=== PATIENT | male | born 1965 | race Caucasian/White ===

== ENCOUNTER 2018-06-14 14:59 | Day surgery (SDC) | payer BC, SELFPAY ==
--- NOTE | 2018-06-14 | PATH_ITS ---
[facility] Accession Number: [id number] . 01 Material submitted: . PART A: ileo-cecal valve - ILEOCECAL VALVE BIOPSY PART B: colon - COLON BIOPSY AT 10CM . 02 Diagnosis: A. Ileocecal Valve, Biopsy: Ileal mucosa with benign lymphoid hyperplasia. Negative for active inflammation, granulomata, dysplasia or malignancy. . B. Colon at 10 cm, Biopsy: Features of inflammatory polyp. Negative for active inflammation, granulomata, dysplasia or malignancy. [facility]/06/16/2018 . 02 Electronically signed: . Reji Borja MD, PhD, Pathologist NPI- [id number] . 01 Gross description: . Part A: ILEOCECAL VALVE BIOPSY: Received in formalin are multiple fragment(s) of carbajal, soft tissue measuring 1.0 x 0.5 x 0.3 cm in aggregate submitted entirely in 1 cassette(s) Part B: COLON BIOPSY AT 10CM: Received in formalin is 1 fragment(s) of carbajal, soft tissue measuring 0.4 x 0.4 x 0.4 cm submitted entirely in 1 cassette(s) /CKI /CKI . 02 Pathologist provided ICD-10: K51.40 . 02 CPT . 673636, [id number] Performed at: 01 [facility] [address], [place], [place] [id number] MD Dawit Moore MD Phone: [phone] Performed at: 02 [facility] [address] [place], [place] [id number] MD Vanna Roy MD Phone: [phone]
[2018-06-14 15:09] VITALS: BP 104/65; PULSE 57; RESP 15; TEMP 36.8; O2SAT 96; BMI 23.1
[2018-06-14] MEDS: SODIUM CHLORIDE 0.9% 1,000 ML 200 ML IV (15:23)
--- NOTE | 2018-06-14 16:36 | PM.HP.1 ---
History of Present Illness Date Patient Seen: 06/14/18 Time Patient Seen: 16:36 Chief complaint: [id number] Narrative: Patient is a gentleman is a 52 wound he is here for his 1st screening colonoscopy. No family history of colon cancer. Patient History Medical History (Updated 06/14/18 @ 16:37 by Ciro Ivory MD) Post cardiac operation functional disturbance (Acute) Surgical History (Updated 06/14/18 @ 16:37 by Ciro Ivory MD) History of appendectomy (Acute) History of inguinal hernia repair (Acute) Social History household members: none Family & Social History Social History: household members none Meds Home Medications Medication Instructions Recorded Confirmed Type No Known Home Medications 06/14/18 06/14/18 History Allergies Allergy/AdvReac Type Severity Reaction Status Date / Time No Known Drug Allergies Allergy Verified 06/14/18 15:23 Review of Systems Review of Systems All systems reviewed & are unremarkable except as noted in HPI and below Cardiovascular Comments: Heart murmur Exam Vital Signs (past 8 hours): - 06/14/18 15:09 Temperature 98.2 F Pulse Rate 57 L Respiratory Rate 15 Blood Pressure 104/65 Pulse Oximetry 96 Oxygen Delivery Method Room Air Narrative Exam Narrative: Pleasant cooperative patient no apparent distress. Lungs are clear to auscultation. No rales or rhonchi. Heart regular rate and rhythm. 3/6 harsh systolic murmur no gallop. Abdomen is soft nontender without mass. No obvious hernias. Patient is alert and oriented x3. Assessment & Plan Assessment & Plan narrative: The patient for a screening colonoscopy. I have discussed the procedure with them. Risks of bleeding, perforation which would necessitate major operation, failure to find remove all lesions, the potential tattoo were all discussed. All questions were answered. They wished to proceed.
[2018-06-14] MEDS: fentaNYL 250 MCG/5 ML INJ IV (18:03)
[2018-06-14] MEDS: MIDAZOLAM 5 MG/5 ML VIAL IV (18:03)
--- NOTE | 2018-06-14 18:14 | PM.OP.ENDO ---
Operative Date/Time/Diagnoses Date of procedure: 06/14/18 Time of procedure: 18:14 Pre-op diagnosis: Screening exam due to age. This is his 1st colonoscopy Post-op diagnosis: same (Colon polyp at 10 cm removed. prominent follicles on the ileocecal valve or biopsied) Procedure & Clinicians Study performed: Colonoscopy with cold biopsy Same procedure as scheduled: Yes Indications: Screening Surgeon: Ciro Ivory Procedure Notes SCOAP/Timeout: Performed Procedure in detail: The patient was placed in the left lateral decubitus position and underwent IV sedation directed by the surgeon consisting of fentanyl and Versed. Digital exam was unremarkable. Prostate is mildly enlarged.. The scope was inserted and advanced through the rectum into the sigmoid, descending, transverse, and ascending colon. Everything was normal in appearance.. The cecum was reached identified by the ileocecal valve and the appendiceal opening. The into the valve had very prominent lymphoid follicles. The ileocecal valve was successfully cannulated. The terminal ileum was normal in appearance except it also had the same prominent lymphoid follicles. I did biopsy a few these just to make sure there were nothing other than prominent follicles. The scope was gradually brought out. A Polyps were found at 10 cm from the anal verge. It was biopsied and completely removed. The scope ultimately was retroflexed in the rectum. The appearance was normal except for some minor scarring. The scope was removed and the patient tolerated the procedure well. The prep was excellent flow Scope withdrawal time: 8 minutes excluding biopsy rosetta Sedation minutes: 21 Findings: polyp (At 10 cm from the anal verge) and other findings (Prominent follicles on the ileocecal valve) Specimen(s): other (Biopsy of ileocecal valve and polyps) Complications: none Recommendations: Colonscopy in 5 years Follow up: as needed Disposition: PACU
[2018-06-14 18:21] VITALS: BP 96/69; PULSE 68; RESP 14; TEMP 36.7; O2SAT 96
[2018-06-14 18:23] VITALS: BP 94/61; PULSE 70; RESP 15; O2SAT 96
[2018-06-14 18:28] VITALS: BP 94/61; PULSE 66; RESP 13; TEMP 36.9; O2SAT 96
[2018-06-14 18:46] VITALS: BP 107/69; PULSE 68; RESP 16; TEMP 36.8; O2SAT 99
== END 2018-06-14 18:45 | disposition home or self-care (01) ==
PROVIDERS: Family Provider Family Medicine; PCP Family Medicine; Visit Provider Surgery
PROC: 0DJD8ZZ Inspection of Lower Intestinal Tract, Via Natural or Artificial Opening Endoscopic (ICD-10-PCS; CPT 45378; principal; 2018-06-14 16:00)
DX: Z12.11 Encounter for screening for malignant neoplasm of colon (principal); K51.40 Inflammatory polyps of colon without complications
CPT/HCPCS: 45380; 99152; J2250; J3010

== ENCOUNTER → 2023-05-28 10:25 | Outpatient (CLI) | payer OTHER, SELFPAY ==
[2023-05-28 10:57] LABS: Alanine Aminotransferase 28 IU/L (<50); Albumin 4.5 g/dL (3.5-5.0); Albumin Globulin Ratio 1.7 (1.0-2.8); Alkaline Phosphatase 54 U/L (38-126); Aspartate Aminotransferase 31 IU/L (17-59); BUN Creatinine Ratio 20.2 (6-22); Bilirubin Total 1.6 mg/dL (0.2-1.3); Blood Urea Nitrogen 20 mg/dL (9-20); Calcium 9.2 mg/dL (8.4-10.2); Carbon Dioxide 25 mmol/L (22-32); Chloride 108 mmol/L (98-107); Cholesterol 160 mg/dL (140-199); Estimated Glomerular Filt Rate > 60 mL/min (>60); Globulin 2.7 g/dL (1.7-4.1); Glucose 87 mg/dL (70-100); HDL Cholesterol 71 mg/dL (40-60); LDL Cholesterol Calculated 73 mg/dL (<100); Potassium 4.5 mmol/L (3.4-5.1); Sodium 138 mmol/L (137-145); Total Protein 7.2 g/dL (6.3-8.2); Triglycerides 80 mg/dL (35-150)
[2023-05-28 11:29] LABS: HEMOLYSIS < 15 (0-50); Prostate Specific Antigen Scrn 0.592 ng/mL (0.1-4.0)
[2023-05-28 11:45] LABS: HIV 1 & 2 Ab/Ag 4th Gen Combo NEGATIVE (NEGATIVE); Hep C Virus Ab w/Reflex Quant NEGATIVE s/c (NEGATIVE)
== END ==
PROVIDERS: Family Provider Family Medicine; PCP Family Medicine; Referring Provider Family Medicine; Visit Provider Family Medicine
DX: R01.1 Cardiac murmur, unspecified (principal); Z00.00 Encounter for general adult medical examination without abnormal findings; Z12.5 Encounter for screening for malignant neoplasm of prostate; Z11.59 Encounter for screening for other viral diseases; Z11.4 Encounter for screening for human immunodeficiency virus [HIV]
CPT/HCPCS: 36415; 80053; 80061; 86803; 87389; G0103

== ENCOUNTER → 2023-05-29 09:44 | Outpatient (CLI) | payer OTHER, SELFPAY ==
[2023-05-31 20:34] LABS: Fecal Immunochemical Test Negative (Negative)
== END ==
PROVIDERS: Family Provider Family Medicine; PCP Family Medicine; Referring Provider Family Medicine; Visit Provider Family Medicine
DX: Z12.11 Encounter for screening for malignant neoplasm of colon (principal); R01.1 Cardiac murmur, unspecified; Z00.00 Encounter for general adult medical examination without abnormal findings; Z12.5 Encounter for screening for malignant neoplasm of prostate; Z11.59 Encounter for screening for other viral diseases; Z11.4 Encounter for screening for human immunodeficiency virus [HIV]
CPT/HCPCS: 82274

== ENCOUNTER → 2024-02-25 08:05 | Outpatient (CLI) | payer OTHER, SELFPAY ==
--- NOTE | 2024-02-25 08:06 | DI.ECHO.S_ITS ---
[place]---------+ [facility] : : [id number] : [address] [address] : : [id number] : : Phone: [phone] Echocardiogram Report + + :Name: KAT BASHIR Study Date: 02/25/2024 Height: 66 in : :[facility] ReadingLocation: Weight: 150 lb : : Gender: Male BSA: 1.8 m2 : :: 1965 Age: 58 yrs BP: 116/80 mmHg: :Reason For Study: HOLOSYSTOLIC MURMUR : :Ordering Physician: KEZIA, : :MILAGRO Performed By: Derek Suresh : :Referring: MILAGRO MAST : + + Interpretation Summary 1) Moderately to severely increased basal septal thickness (1.6cm). 2) Normal left ventricular size and systolic function (EF 60-65%). 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 3) Normal right ventricular size and function. 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 5) Compared to the Echo done 07/06/2014, mitral valve has been repaired successfully but significant dynamic LVOTgradient remains persistent on this study. Procedure: A two-dimensional transthoracic echocardiogram with color flow and Doppler was performed. The study quality was technically adequate. Comparison is made with the echocardiogram of 03/25/2014. The patient was in normal sinus rhythm during the exam. Left Ventricle: The left ventricle is normal in size. Left ventricular wall thickness is moderate-severely increased. Hx of Septal Myectomy in 2015(?). 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 The left ventricular outflow velocity with valsalva is 4.9m/s. There is no ventricular septal defect visualized. The ejection fraction is estimated to be 60-65%. Septal motion is consistent with post- operative state. Diastolic parameters suggest a relaxation abnormality of the left ventricle, consistent with probable normal filling pressures. Right Ventricle: The right ventricle is normal in size and function. Atria: The left atrium is mildly dilated. Right atrial size is normal. There is no Doppler evidence for an interatrial shunt. Mitral Valve: There is mild mitral annular calcification. The mitral valve leaflets appear mildly thickened, but open well. There is trace mitral regurgitation. Aortic Valve: The aortic valve is trileaflet. The aortic valve is mildly calcified. The aortic valve opens well. The peak aortic velocity is 2.7 m/sec. There is no aortic valve stenosis. No aortic regurgitation is present. Tricuspid Valve: The tricuspid valve leaflets are thin and pliable. There is a trace or physiologic amount of tricuspid regurgitation. Pulmonic Valve: The pulmonic valve leaflets are thin and pliable; valve motion is normal. There is trace pulmonic regurgitation. Great Vessels: The aortic root is normal size. The dimensions of the ascending aorta are normal. The pulmonary artery is normal size. The inferior vena cava was not visualized. Pericardium/ Pleura There is no pericardial effusion. MMode/2D Measurements & Calculations LVIDd: 4.8 cm LVOT diam: 2.0 cm LVIDs: 3.1 cm Ao root diam: 3.4 cm FS: 35.3 % asc Aorta Diam: 3.1 cm EPSS: 0.40 cm IVSd: 1.6 cm LVPWd: 0.99 cm LV pride. diameter/BSA (cm/m^2): 2.7 LV sys. diameter/BSA (cm/m^2): 1.8 LA A2 area: 19.4 cm2 RA long axis: 4.8 cm LA A4 area: 19.9 cm2 RA area: 14.3 cm2 LA length (vol): 5.4 cm RA vol: 36.5 ml LA vol: 60.2 ml RA : 20.6 ml/m2 LA vol index: 34.0 ml/m2 RVD1 (basal): 3.8 cm RVD2 (mid): 2.3 cm TAPSE: 2.1 cm Doppler Measurements & Calculations Ao V2 max: 269.2 cm/sec LVOT Max Trevor: 186.5 cm/sec Ao V2 mean: 181.8 cm/sec LV V1 max P.9 mmHg Ao max P.0 mmHg LV V1 VTI: 41.6 cm Ao mean P.3 mmHg JERONIMO(I,D): 2.2 cm2 Ao V2 VTI: 58.1 cm JERONIMO(V,D): 2.2 cm2 sev ratio: 0.72 JERONIMO indexed to BSA (cm^2/m^2): 1.3 MV E max trevor: 68.4 cm/sec PA V2 max: 80.2 cm/sec MV A max trevor: 86.5 cm/sec PA V2 mean: 55.7 cm/sec MV E/A: 0.79 PA mean P.4 mmHg Med Peak E' Trevor: 3.4 cm/sec PA pr(Accel): 12.2 mmHg E/E' med: 19.9 Lat Peak E' Trevor: 6.5 cm/sec E/E' lat: 10.5 E/e' average: 15.2 MV dec time: 0.32 sec SV(OT): 129.1 ml Reading Physician:12:30 PM
== END ==
PROVIDERS: Family Provider Family Medicine; PCP Family Medicine; Referring Provider Family Medicine; Visit Provider Family Medicine
DX: I08.0 Rheumatic disorders of both mitral and aortic valves (principal); R01.1 Cardiac murmur, unspecified
CPT/HCPCS: 93306